=== PATIENT | male | born 1945 | race Caucasian/White ===

== ENCOUNTER → 2021-12-09 14:23 | Outpatient (BNVA) | payer MEDICARE, SELFPAY | PROVIDERS: PCP Internal Medicine; Visit Provider Nurse Practitioner Family | DX: R42 Dizziness and giddiness (principal); R25.1 Tremor, unspecified | CPT/HCPCS: 99212 ==

== ENCOUNTER → 2022-01-26 14:28 | Outpatient (BNVA) | payer MEDICARE, SELFPAY | PROVIDERS: PCP Internal Medicine; Visit Provider Nurse Practitioner Family | DX: R25.1 Tremor, unspecified (principal); R42 Dizziness and giddiness; R26.2 Difficulty in walking, not elsewhere classified | CPT/HCPCS: 99212 ==